=== PATIENT | female | born 1955 | race Caucasian/White ===

== ENCOUNTER 2018-02-05 13:15 | Emergency (ER) | payer MEDICARE, MEDICAID ==
[~2018-02-05] VITALS: Ht 162.6 cm; Wt 107.3 kg
[~2018-02-05 13:15] MED LIST: ANTIBIOTIC UNKNOWN; ATIVAN 0.50.5 MG/TAB PO; BENADRYL PO; BENADRYL50 MG PO; BENTYL 20MG20 MG/TAB PO; BLADDER PILL; CELEXA PO; CELEXA20 MG PO; CELEXA40 MG PO; COGENTIN PO; DESYREL 100MG100 MG PO; DITROPAN XL10 MG PO; HALDOL 5MG T5 MG/TAB PO; HALDOL 5MG/ML5 MG/ML INJ; LEVAQUIN 750MG750 M1 PO; MAGNESIUM200 MG PO; NEXIUM 20MG20 MG PO; NEXIUM10 MG/Pack PO; PRISTIQ 50 MG T50 MG PO; SINGULAIR 110 MG/TAB PO; TRAZADONE HYDR100 MG PO; VITAMIN D1000 IU PO; XARELTO STARTER20 MG PO; XARELTO15 MG PO; XARELTO20 MG PO
[2018-02-05 13:20] VITALS: BP 133/68; TEMP 97
[2018-02-05] MEDS ORDERED: ZYRTEC 10MG10 MG PO (13:42)
[2018-02-05] MEDS ORDERED: PRILOSEC 20MG20 MG PO (13:43)
[2018-02-05] MEDS ORDERED: ELIQUIS 5MG PO (13:43)
[2018-02-05] MEDS ORDERED: PROAIR HFA0.09 MG/AC IH ×2 (13:44→14:43)
[2018-02-05] MEDS ORDERED: LEVOXYL0.05 MG PO (13:44)
[2018-02-05] MEDS ORDERED: IPRATROPIUM BROM3 M1 IH (13:45)
[2018-02-05] MEDS ORDERED: COMBIRESP IH (14:43)
[2018-02-05 15:14] VITALS: PULSE 83
== END 2018-02-05 15:15 | disposition home or self-care (01) ==
LOC: COL.ER 13:15
DX: J45.909 Unspecified asthma, uncomplicated (principal); E03.9 Hypothyroidism, unspecified; Z86.711 Personal history of pulmonary embolism; Z86.718 Personal history of other venous thrombosis and embolism; Z79.01 Long term (current) use of anticoagulants
CPT/HCPCS: J1100

== ENCOUNTER → 2018-06-28 | Outpatient (CLI) | payer MEDICARE, MEDICAID ==
[~2018-06-28] MED LIST changes: +COMBIRESP IH; +ELIQUIS 5MG PO; +IPRATROPIUM BROM3 M1 IH; +LEVOXYL0.05 MG PO; +PRILOSEC 20MG20 MG PO; +PROAIR HFA0.09 MG/AC IH; +ZYRTEC 10MG10 MG PO
[2018-06-28 15:26] LABS: BASO # 0.1 (0.0-0.2); BASO % 1.1 % (0.0-2.0); EOS # 0.1 (0.0-0.7); EOS % 1.9 % (0-4.0); GRAN # 3.6 (1.4-6.5); GRAN % 58.7 % (42.2-75.2); HEMATOCRIT 43.6 % (37.0-47.0); HEMOGLOBIN 13.9 g/dl (12.5-16.0); LYMPH # 1.9 (1.2-3.4); LYMPH % 30.8 % (20.0-51.0); MEAN CELL VOLUME 82 fl (80.0-100.0); MEAN CORPUSCULAR HEMOGLOBIN 26 pg (27.0-31.0); MEAN CORPUSCULAR HGB CONC 32 g/dl (33.0-37.0); MEAN PLATELET VOLUME 12.3 fl (7.4-10.4); MONO # 0.5 (0.1-0.6); MONO % 7.3 % (1.7-9.3); PLATELET COUNT 175 K/mm3 (130-400); REDCELL DISTRIBUTION WIDTH-CV 18.1 % (11.5-14.5)
[2018-06-28 15:36] LABS: ALBUMIN 4.1 gm/dL (3.5-5.0); BILIRUBIN,TOTAL 0.5 mg/dL (0.0-1.0); CALCIUM 10.8 mg/dL (8.4-10.2); CREATININE, serum 0.81 mg/dL (0.52-1.25); MAGNESIUM 2.2 mg/dL (1.6-2.3); PHOSPHOROUS 2.8 mg/dL (2.5-4.5); POTASSIUM 3.9 mmol/L (3.4-5.0); TOTAL PROTEIN 7.5 gm/dL (6.4-8.2)
== END ==
LOC: COL.LAB 11:47
PROVIDERS: Family Medicine
DX: M79.606 Pain in leg, unspecified (principal); E21.5 Disorder of parathyroid gland, unspecified; G89.29 Other chronic pain

== ENCOUNTER → 2018-09-21 | Outpatient (CLI) | payer MEDICARE, OTHER | LOC: COL.RAD 07:57 | DX: M47.817 Spondylosis without myelopathy or radiculopathy, lumbosacral region (principal) ==

== ENCOUNTER → 2019-03-05 | Outpatient (CLI) | payer MEDICARE, OTHER | LOC: MC.RAD 07:12 | DX: Z12.31 Encounter for screening mammogram for malignant neoplasm of breast (principal); N64.89 Other specified disorders of breast ==

== ENCOUNTER → 2019-03-08 | Outpatient (CLI) | payer MEDICARE, OTHER | LOC: MC.RAD 13:26 | DX: N64.89 Other specified disorders of breast (principal) | CPT/HCPCS: G0279 ==

== ENCOUNTER → 2019-07-30 | Outpatient (CLI) | payer MEDICARE, OTHER | LOC: ZCOL.LAB 10:47 | DX: K52.9 Noninfective gastroenteritis and colitis, unspecified (principal) ==

== ENCOUNTER → 2019-09-20 | Outpatient (CLI) | payer MEDICARE, OTHER ==
[2019-09-20 11:32] LABS: BASO # 0.1 (0.0-0.2); EOS # 0.3 (0.0-0.7); EOS % 3.8 % (0-4.0); GRAN # 4.2 (1.4-6.5); GRAN % 62.6 % (42.2-75.2); HEMOGLOBIN 14.4 g/dl (12.5-16.0); LYMPH # 1.7 (1.2-3.4); LYMPH % 24.7 % (20.0-51.0); MEAN CELL VOLUME 92 fl (80.0-100.0); MEAN CORPUSCULAR HEMOGLOBIN 30 pg (27.0-31.0); MEAN CORPUSCULAR HGB CONC 33 g/dl (33.0-37.0); MEAN PLATELET VOLUME 11.1 fl (7.4-10.4); MONO # 0.5 (0.1-0.6); MONO % 7.8 % (1.7-9.3); PLATELET COUNT 192 K/mm3 (130-400); RED BLOOD COUNT 4.76 M/mm3 (4.10-5.30); REDCELL DISTRIBUTION WIDTH-CV 13.3 % (11.5-14.5)
[2019-09-20 11:44] LABS: ALBUMIN 4.1 gm/dL (3.5-5.0); BILIRUBIN,TOTAL 0.5 mg/dL (0.0-1.0); CALCIUM 11.2 mg/dL (8.4-10.2); CREATININE, serum 0.99 (0.52-1.25); POTASSIUM 3.8 mmol/L (3.4-5.0); TOTAL PROTEIN 7.3 gm/dL (6.4-8.2)
[2019-09-20 12:14] LABS: THYROID STIMULATING HORMONE 3.12 uIU/mL (0.465-4.680)
[2019-09-20 22:59] LABS: PTH,INTACT 197.3 pg/mL (6.6-88.9)
== END ==
LOC: COL.LAB 10:50
PROVIDERS: Family Medicine
DX: R53.83 Other fatigue (principal); E03.9 Hypothyroidism, unspecified; E21.5 Disorder of parathyroid gland, unspecified

== ENCOUNTER → 2019-09-20 | Outpatient (CLI) | payer MEDICARE, OTHER | LOC: ZCOL.LAB 16:28 | DX: N39.0 Urinary tract infection, site not specified (principal) ==

== ENCOUNTER 2019-11-25 15:23 | Emergency (ER) | payer MEDICARE, OTHER ==
[~2019-11-25] VITALS: Ht 162.6 cm; Wt 104.5 kg
[2019-11-25 15:28] VITALS: BP 140/85; TEMP 97.7
[2019-11-25] MEDS ORDERED: NORCO 325 MG-51 TAB PO (17:03)
[2019-11-25 18:06] VITALS: PULSE 80
== END 2019-11-25 18:06 | disposition home or self-care (01) ==
LOC: COL.ER 15:23
DX: S52.501A Unspecified fracture of the lower end of right radius, initial encounter for closed fracture (principal); R40.2412 Glasgow coma scale score 13-15, at arrival to emergency department; Z86.718 Personal history of other venous thrombosis and embolism; Z79.01 Long term (current) use of anticoagulants; W00.0XXA Fall on same level due to ice and snow, initial encounter; Y92.410 Unspecified street and highway as the place of occurrence of the external cause
CPT/HCPCS: Q4050

== ENCOUNTER → 2020-06-06 | Outpatient (CLI) | payer MEDICARE, OTHER ==
[~2020-06-06] MED LIST changes: +NORCO 325 MG-51 TAB PO
== END ==
LOC: COL.RAD 10:20
DX: E21.3 Hyperparathyroidism, unspecified (principal); E55.9 Vitamin D deficiency, unspecified
CPT/HCPCS: A9500

== ENCOUNTER 2020-12-04 11:10 | Outpatient (CLI) | payer MEDICARE, OTHER ==
[~2020-12-04] VITALS: Ht 162.6 cm; Wt 111.4 kg
[2020-12-04] VITALS (9 sets, daily range): BP systolic 108–132; BP diastolic 54–103; PULSE 73–93; TEMP 98.4
[2020-12-04] MEDS ORDERED: BREO IH (11:15)
[2020-12-04] MEDS ORDERED: ZESTRIL 20MG TA20 MG PO (11:15)
[2020-12-04] MEDS ORDERED: PRILOSEC 20MG20 MG PO (11:16)
[2020-12-04] MEDS ORDERED: VENTOLIN0.09 MG IH (11:17)
[2020-12-04] MEDS ORDERED: QUESTRAN LI4 GM/5 GM PO (11:17)
== END 2020-12-04 13:30 | disposition home or self-care (01) ==
LOC: EUO 11:10
DX: U07.1 COVID-19 (principal)
CPT/HCPCS: J7050

== ENCOUNTER 2020-12-09 12:23 | Observation (INO) | payer MEDICARE, OTHER ==
[~2020-12-09] VITALS: Ht 162.6 cm; Wt 111.6 kg
[~2020-12-09 12:23] MED LIST changes: +BREO IH; +QUESTRAN LI4 GM/5 GM PO; +VENTOLIN0.09 MG IH; +ZESTRIL 20MG TA20 MG PO
[2020-12-09 13:09] LABS: BASO % 0.5 % (0.0-2.0); EOS # 0.1 (0.0-0.7); EOS % 0.6 % (0-4.0); GRAN # 6.1 (1.4-6.5); GRAN % 76.2 % (42.2-75.2); HEMATOCRIT 46.9 % (37.0-47.0); HEMOGLOBIN 15.4 g/dl (12.5-16.0); LYMPH # 1.1 (1.2-3.4); LYMPH % 13.5 % (20.0-51.0); MEAN CELL VOLUME 91 fl (80.0-100.0); MEAN CORPUSCULAR HEMOGLOBIN 30 pg (27.0-31.0); MEAN CORPUSCULAR HGB CONC 33 g/dl (33.0-37.0); MEAN PLATELET VOLUME 11.1 fl (7.4-10.4); MONO # 0.7 (0.1-0.6); MONO % 8.6 % (1.7-9.3); PLATELET COUNT 223 K/mm3 (130-400); RED BLOOD COUNT 5.17 M/mm3 (4.10-5.30); REDCELL DISTRIBUTION WIDTH-CV 13.1 % (11.5-14.5)
[2020-12-09 13:26] LABS: ALBUMIN 4.2 gm/dL (3.5-5.0); BILIRUBIN,TOTAL 0.7 mg/dL (0.0-1.0); CALCIUM 11.4 mg/dL (8.4-10.2); CREATININE, serum 1.14 (0.52-1.25); POTASSIUM 4.5 mmol/L (3.4-5.0)
[2020-12-09 21:42] VITALS: BP 125/55; PULSE 83; TEMP 98.8
[2020-12-09 23:50] VITALS: BP 122/56; PULSE 84; TEMP 98.6
--- NOTE | 2020-12-10 00:45 | NUR ---
Patient admitted to medical floor room 305 from ER at 1900. Patient finished dinner in bed upon enter the room. Patient alert and oriented. Denies any pain or discomfort. Denies SOB or dyspnea while resting in bed. Patient reports she gets SOB when she gets up or with any movement. Currently on room air. SPO2 90% on RA at this time. Moist cough noted. HOB elevated. NS running at 100ml/hr via left AC. Assessment completed and charted. All scheduled meds given per JAN. Ice-water offered per request. Call light within reach. Encouraged patient to call the nurse if she needs anything. Patient verbalized understanding. Will continue to monitor.
[2020-12-10 01:30] VITALS: BP 122/56; PULSE 84; TEMP 98.6
[2020-12-10 03:05] VITALS: BP 118/58; PULSE 84; TEMP 98.7
[2020-12-10 04:29] VITALS: BP 120/61; PULSE 85; TEMP 98.7
--- NOTE | 2020-12-10 06:05 | NUR ---
Patient is having more productive cough this morning. PRN Robitussin given this morning. VS stable. SPO2 93% on RA. Patient sitting up in bed. Call light within reach. Patient denies further needs at this time.
[2020-12-10 07:32] LABS: BASO % 0.2 % (0.0-2.0); GRAN # 4.8 (1.4-6.5); GRAN % 85.8 % (42.2-75.2); HEMATOCRIT 41.6 % (37.0-47.0); HEMOGLOBIN 13.8 g/dl (12.5-16.0); LYMPH # 0.6 (1.2-3.4); LYMPH % 11.3 % (20.0-51.0); MEAN CELL VOLUME 91 fl (80.0-100.0); MEAN CORPUSCULAR HEMOGLOBIN 30 pg (27.0-31.0); MEAN CORPUSCULAR HGB CONC 33 g/dl (33.0-37.0); MEAN PLATELET VOLUME 11.5 fl (7.4-10.4); MONO # 0.1 (0.1-0.6); PLATELET COUNT 207 K/mm3 (130-400); RED BLOOD COUNT 4.57 M/mm3 (4.10-5.30); REDCELL DISTRIBUTION WIDTH-CV 12.9 % (11.5-14.5)
[2020-12-10 07:42] LABS: CALCIUM 10.7 mg/dL (8.4-10.2); CREATININE, serum 0.83 (0.52-1.25); POTASSIUM 4.3 mmol/L (3.4-5.0)
--- NOTE | 2020-12-10 08:30 | NUR ---
Shift assessment complete. Pt sitting up in bed. Reports SOA with coughing. Frequent dry cough noted. Lung sounds coarse to auscultation. Heart RRR. A&Ox4. Remains on RA with sats stable. Denies pain or other concerns. Continuing to monitor.
--- NOTE | 2020-12-10 09:55 | NUR ---
The patient is positive for COVID-19. SW contacted the patient's room phone to discuss discharge plan. The patient lives alone in [place]. She states that one of her daughter's, Stephanie Finley (ph#[phone]), lives in [place]. She reports independence with ADLs and does not have any DME. The patient's primary care provider is DYLAN Carson and she receives her medications from [facility]. She reports some difficulties affording her meds right now. SW informed her of [employer] assistance and [employer]. The patient does not have a DPOA-HC. She states that she is not and that she has two children: Stephanie and Lashawn (ph#[phone]). Lashawn lives in [place]. The patient plans to return home upon discharge. SW to continue to follow as needed.
[2020-12-10] MEDS ORDERED: DOXYCYCLINE 10100 MG PO (11:49)
[2020-12-10] MEDS ORDERED: DECADRON6 MG PO (11:50)
[2020-12-10 12:50] VITALS: BP 118/68; PULSE 79; TEMP 97.2
[2020-12-10] MEDS ORDERED: ROBITUSSIN DM 105 ML PO (12:54)
--- NOTE | 2020-12-10 14:51 | NUR ---
Discharge instructions discussed with pt and all questions answered. IV to left AC removed, tip intact. Pt dressed independently. Pt's daughter on the way to peanut picker. Continuing to monitor.
--- NOTE | 2020-12-10 16:00 | NUR ---
Pt ambulated down to ED entrance, wheelchair offered and refused. Accompanied by this RN. Got into family car independently. All belongings in possession.
== END 2020-12-10 16:00 | disposition home or self-care (01) ==
LOC: COL.ER 12:23 → MEDICAL 13:51
PROVIDERS: Family Medicine; ADMIT Hospitalist
DX: U07.1 COVID-19 (principal); I10 Essential (primary) hypertension; Z86.718 Personal history of other venous thrombosis and embolism; Z86.711 Personal history of pulmonary embolism; E03.9 Hypothyroidism, unspecified; K21.9 Gastro-esophageal reflux disease without esophagitis; R19.7 Diarrhea, unspecified; J45.909 Unspecified asthma, uncomplicated; Z88.5 Allergy status to narcotic agent; Z88.1 Allergy status to other antibiotic agents; Z88.8 Allergy status to other drugs, medicaments and biological substances; Z79.01 Long term (current) use of anticoagulants; Z79.51 Long term (current) use of inhaled steroids
CPT/HCPCS: J0696; J7030; J7120; J8540

== ENCOUNTER 2021-02-24 09:46 | Emergency (ER) | payer MEDICARE, OTHER, MEDICAID ==
[~2021-02-24] VITALS: Ht 162.6 cm; Wt 113.6 kg
[~2021-02-24 09:46] MED LIST changes: +DECADRON6 MG PO; +DOXYCYCLINE 10100 MG PO; +ROBITUSSIN DM 105 ML PO
[2021-02-24 11:44] LABS: COLLECTION METHOD CLEAN CATCH
[2021-02-24 11:53] LABS: MUCOUS Present /lpf; PH 6 (5-8); URINE APPEARANCE Hazy; URINE BACTERIA None Seen /hpf; URINE BILIRUBIN Negative (NEGATIVE); URINE BLOOD Negative (NEGATIVE); URINE COLOR Yellow; URINE GLUCOSE Negative (NEGATIVE); URINE KETONE Negative (NEGATIVE); URINE LEUKOCYTE ESTERASE 1+ (NEGATIVE); URINE NITRATE Negative (NEGATIVE); URINE PROTEIN(semi-quant) Negative (NEGATIVE); URINE RBC 0-2 /hpf; URINE UROBILINOGEN Negative (NEGATIVE)
[2021-02-24 12:03] LABS: ALANINE AMINOTRANSFERASE 20 U/L (4-34); ALKALINE PHOSPHATASE 94 U/L (50-136); ANION GAP 9 mmol/L (7-16); AST,SGOT 24 U/L (15-37); BILIRUBIN,TOTAL 0.4 mg/dL (0.0-1.0); BLOOD UREA NITROGEN 13 mg/dL (7-17); C-REACTIVE PROTEIN 0.8 mg/dL (0.0-0.9); CALCIUM 11.2 mg/dL (8.4-10.2); CARBON DIOXIDE 22 mmol/L (22-30); CHLORIDE 106 mmol/L (98-107); CREATININE, serum 0.87 (0.52-1.25); GLUCOSE 119 mg/dL (74-106); POTASSIUM 4.4 mmol/L (3.4-5.0); SODIUM 137 mmol/L (137-145); TOTAL PROTEIN 7.4 gm/dL (6.4-8.2)
[2021-02-24 12:13] LABS: TROPONIN-I < 0.012 ng/mL (0.000-0.035)
[2021-02-24 12:18] LABS: BASO # 0.1 (0.0-0.2); BASO % 1.2 % (0.0-2.0); EOS # 0.2 (0.0-0.7); EOS % 2.5 % (0-4.0); GRAN # 4.8 (1.4-6.5); GRAN % 69.6 % (42.2-75.2); HEMATOCRIT 44.9 % (37.0-47.0); HEMOGLOBIN 14.6 g/dl (12.5-16.0); LYMPH # 1.2 (1.2-3.4); MEAN CELL VOLUME 94 fl (80.0-100.0); MEAN CORPUSCULAR HEMOGLOBIN 30 pg (27.0-31.0); MEAN CORPUSCULAR HGB CONC 33 g/dl (33.0-37.0); MEAN PLATELET VOLUME 12.3 fl (7.4-10.4); MONO # 0.6 (0.1-0.6); MONO % 8.4 % (1.7-9.3); PLATELET COUNT 226 K/mm3 (130-400); REDCELL DISTRIBUTION WIDTH-CV 14.3 % (11.5-14.5)
[2021-02-24] MEDS ORDERED: PREDNISONE20 MG PO (14:16)
[2021-02-24] MEDS ORDERED: IPRATROPIUM BROM3 M1 IH (14:23)
[2021-02-24 14:34] VITALS: BP 133/74; PULSE 77; TEMP 97.9
== END 2021-02-24 14:34 | disposition home or self-care (01) ==
LOC: COL.ER 09:46
PROVIDERS: Nurse Practitioner Primary Care
DX: J45.901 Unspecified asthma with (acute) exacerbation (principal); E03.9 Hypothyroidism, unspecified; K21.9 Gastro-esophageal reflux disease without esophagitis; Z88.8 Allergy status to other drugs, medicaments and biological substances; Z88.6 Allergy status to analgesic agent; Z88.1 Allergy status to other antibiotic agents; Z87.891 Personal history of nicotine dependence; Z79.01 Long term (current) use of anticoagulants; Z79.890 Hormone replacement therapy
CPT/HCPCS: J7030

== ENCOUNTER 2021-03-10 16:27 | Emergency (ER) | payer MEDICARE, OTHER, MEDICAID ==
[~2021-03-10] VITALS: Ht 162.6 cm; Wt 113.6 kg
[~2021-03-10 16:27] MED LIST changes: +PREDNISONE20 MG PO
[2021-03-10 16:31] VITALS: TEMP 97.4
[2021-03-10 17:30] LABS: INR 1.3 (0.8-3.0); PROTHROMBIN TIME 14.9 SECONDS (9.7-12.8)
[2021-03-10 17:42] LABS: D-DIMER < 200.00 ng/mLDDu (200-230)
[2021-03-10 18:08] VITALS: BP 147/78; PULSE 79
== END 2021-03-10 18:05 | disposition home or self-care (01) ==
LOC: COL.ER 16:27
PROVIDERS: Emergency Medicine
DX: M79.605 Pain in left leg (principal); J45.909 Unspecified asthma, uncomplicated; I10 Essential (primary) hypertension; E89.0 Postprocedural hypothyroidism; Z86.718 Personal history of other venous thrombosis and embolism; Z79.01 Long term (current) use of anticoagulants; Z86.711 Personal history of pulmonary embolism; Z86.16 Personal history of COVID-19; Z88.1 Allergy status to other antibiotic agents; Z88.6 Allergy status to analgesic agent; Z88.5 Allergy status to narcotic agent; Z87.891 Personal history of nicotine dependence; Z79.890 Hormone replacement therapy; Z79.51 Long term (current) use of inhaled steroids; Z79.899 Other long term (current) drug therapy

== ENCOUNTER → 2021-04-03 | Outpatient (CLI) | payer MEDICARE, OTHER ==
[~2021-04-03] MED LIST changes: +RT SPIRIVA18 MCG IH
--- NOTE | 2021-04-03 13:24 | NUR ---
PATIENT AGREED TO TAKE ALBUTEROL MEDICATION, AND SAYS SHE TAKES THIS AT HOME WELL WHEN ASKED.
== END ==
LOC: COL.PUL 12:42
DX: J45.40 Moderate persistent asthma, uncomplicated (principal); Z87.891 Personal history of nicotine dependence
CPT/HCPCS: J7674

== ENCOUNTER → 2021-06-22 | Outpatient (CLI) | payer MEDICARE, OTHER | LOC: MC.RAD 08:43 | DX: Z12.31 Encounter for screening mammogram for malignant neoplasm of breast (principal) ==

== ENCOUNTER 2021-07-14 11:18 | Observation (INO) | payer MEDICARE, OTHER, MEDICAID ==
[~2021-07-14] VITALS: Ht 170.2 cm; Wt 113.6 kg
[~2021-07-14 11:18] MED LIST changes: -RT SPIRIVA18 MCG IH
[2021-07-14 11:54] LABS: BASO # 0.1 (0.0-0.2); BASO % 1.1 % (0.0-2.0); EOS # 0.5 (0.0-0.7); EOS % 6.1 % (0-4.0); GRAN # 5.1 (1.4-6.5); HEMATOCRIT 43.8 % (37.0-47.0); HEMOGLOBIN 14.3 g/dl (12.5-16.0); LYMPH # 1.7 (1.2-3.4); MEAN CELL VOLUME 91 fl (80.0-100.0); MEAN CORPUSCULAR HEMOGLOBIN 30 pg (27.0-31.0); MEAN CORPUSCULAR HGB CONC 33 g/dl (33.0-37.0); MEAN PLATELET VOLUME 11.8 fl (7.4-10.4); MONO # 0.6 (0.1-0.6); MONO % 7.5 % (1.7-9.3); PLATELET COUNT 184 K/mm3 (130-400); RED BLOOD COUNT 4.82 M/mm3 (4.10-5.30); REDCELL DISTRIBUTION WIDTH-CV 14.2 % (11.5-14.5)
[2021-07-14 12:06] LABS: BILIRUBIN,TOTAL 0.3 mg/dL (0.0-1.0); CALCIUM 11.2 mg/dL (8.4-10.2); CREATININE, serum 0.97 (0.52-1.25); TOTAL PROTEIN 6.9 gm/dL (6.4-8.2)
[2021-07-14 12:18] LABS: TROPONIN-I 0.016 ng/mL (0.000-0.035)
[2021-07-14 16:31] VITALS: BP 136/84; PULSE 96; TEMP 97.5
--- NOTE | 2021-07-14 16:46 | NUR ---
PT CAME TO FLOOR FROM ED. RECEIVED REPORT FROM PEDRO MARY. PT AWAKE, ALERT/ORIENTED X4. RESTING IN BED. DENIES REPORTS OF PAIN. CALL OTERO IN REACH. NOTHING FURTHER NEEDED AT THIS TIME.
--- NOTE | 2021-07-14 18:09 | NUR ---
pt breathing 56 rr a minute, pulse ox 98% on 3l nc, rt called for breathing treatment, kajal caldwell called and ativan ordered.
--- NOTE | 2021-07-14 18:36 | NUR ---
PT REPORTS much easier breathing, pt breathing less labored per assessment, called rt for breathing treatment as she still has not had it yet. no other needs
--- NOTE | 2021-07-14 18:46 | NUR ---
PT WAS ADMITTED FROM ED WITH ASTHMA EXACERBATION. PT HAD RESPIRATORY DISTRESS EPISODE WITH RESPIRATIONS IN THE 30s. PT IS BREATHING NORMALLY NOW. PT SITTING IN BED EATING. DENIES ANY PAIN AND HAS NO NEEDS AT THIS TIME. CALL OTERO IN REACH.
--- NOTE | 2021-07-14 20:30 | NUR ---
Initial shift assessment done- denies pain, SOB with exertion, o2 3L/nc, calm, has been resting, no requests, will wear her CPAP for the night
[2021-07-14 20:42] VITALS: BP 135/67; PULSE 95; TEMP 97.5
[2021-07-15] VITALS (8 sets, daily range): BP systolic 97–121; BP diastolic 51–70; PULSE 68–107; TEMP 97.5–98.7
--- NOTE | 2021-07-15 04:49 | NUR ---
Quiet night- sleeping well tonight, VSS, has been on her CPAP all night.
--- NOTE | 2021-07-15 08:20 | NUR ---
PT PLEASANT, AOX4, PT HAS TACHYPNIC BREATHING, RT CALLED FOR BREATHING TREATMENT. VITALS TAKEN, MEDICATIONS GIVEN, ASSESSMENT PERFORMED, DESPITE LABORED BREATHING PT REPORTS "FEELING MUCH BETTER".
--- NOTE | 2021-07-15 10:08 | NUR ---
WENT TO REASSESS PT, PT STILL BREATHING 34 A MINUTE DESPITE HAVING BREATHING TREATMENT EARLIER IN AM. DONIS RICHARDSON NOTIFIED.
[2021-07-15 10:25] LABS: BASO % 0.1 % (0.0-2.0); GRAN # 14.5 (1.4-6.5); GRAN % 91.7 % (42.2-75.2); HEMATOCRIT 41.2 % (37.0-47.0); HEMOGLOBIN 13.5 g/dl (12.5-16.0); LYMPH # 0.8 (1.2-3.4); LYMPH % 4.9 % (20.0-51.0); MEAN CELL VOLUME 92 fl (80.0-100.0); MEAN CORPUSCULAR HEMOGLOBIN 30 pg (27.0-31.0); MEAN CORPUSCULAR HGB CONC 33 g/dl (33.0-37.0); MONO # 0.4 (0.1-0.6); MONO % 2.7 % (1.7-9.3); PLATELET COUNT 177 K/mm3 (130-400); REDCELL DISTRIBUTION WIDTH-CV 14.4 % (11.5-14.5)
[2021-07-15 10:32] LABS: CALCIUM 11.5 mg/dL (8.4-10.2); CREATININE, serum 0.81 (0.52-1.25); POTASSIUM 4.2 mmol/L (3.4-5.0)
--- NOTE | 2021-07-15 12:03 | NUR ---
RESP RATE REASSESSED AFTER ATIVAN ADMINISTRATION, PT STILL TACHYPNIC, DONIS RICHARDSON NOTIFIED AND RT CALLED FOR A BREATHING TREATMENT
--- NOTE | 2021-07-15 13:53 | NUR ---
First visit from the box repairer. No needs right now.
--- NOTE | 2021-07-15 16:23 | NUR ---
Met with patient to discuss discharge planning. Patient noticably short of breath but willing and able to converse. Patient lives alone here in [place]. She states their are some stairs into the front of the property but she is able to manage them if needed. Patient lists her daughter, Stephanie Ny #[phone] as her emergency contact and DPOA-HC. Form filled out with ABEL Mendez and copy placed on patient chart. Alternate is patient's other daughter, Lashawn Cline who lived in [place]. Patient does not use and assistive devices, home medical equipment, or home health services. She stated she has Medicare, supplemental insurance, and [email or web address]. PCP is Sonu RICHARDSON with [facility] and preferred pharmacy is [facility]. Patient thinks her daughter may be able to help her out at home a little but doesn't expect to need any home health services. Outpatient physical therapy, patient thinks [place]. Discharge plan: home with family, OUTPT PT
--- NOTE | 2021-07-15 18:33 | NUR ---
PT TACHYPNIC ALL DAY, BREATHING TREATMENTS SCHEDULED, DENIES PAIN, NO OHTER NEEDS
--- NOTE | 2021-07-15 19:12 | NUR ---
PT HAD COUGHING FIT, BREATHING 56 PER MINUTE. JOSE DAVID PAYNE CALLED AND ATIVAN ONE TIME ORDERED. RT CALLED FOR BREATHING TREATMENT. RT IN ROOM GIVING BREATHING TREATMENT WHEN ATIVAN GIVEN.
--- NOTE | 2021-07-15 19:15 | NUR ---
PT REPORTING ACHING IN CHEST THAT DOES NOT RADIATE ANYWHERE. VITALS OBTAINED
--- NOTE | 2021-07-15 19:24 | NUR ---
JOSE DAVID CALLED AND NOTIFIED OF CHEST ACHE WITH BREATHING TREATMENT. EKG ORDERED ALONG WITH TROPONIN'S INITIAL AND 3HR. ORDERS PLACED.
[2021-07-16] VITALS (7 sets, daily range): BP systolic 103–157; BP diastolic 43–91; PULSE 59–86; TEMP 97.1–98
--- NOTE | 2021-07-16 00:24 | NUR ---
PT CURRENTLY ON HOME CPAP MACHINE. SATURATIONS 94% FOR 0000 VS.
--- NOTE | 2021-07-16 00:42 | NUR ---
THIS RN NOTICED THAT ASSESSMENT NOTE IS NOT AVAILABLE AT THIS TIME. RECONSTRUCTION OF ASSESSMENT NOTE ATTEMPT. PT ALERT AND ORIENTED. PT HAD TACHYPNIC EPISODE AT SHIFT CHANGE WHICH SHE STATED WAS RESULT OF DRINKING COFFEE. PT EDUCATED ON EFFECTS OF CAFFEINE. PT CONTINUES TO BE TACHYPNIC BUT HAS SLOWED SINCE BREATHING TREATMENT. PT HAS RIGHT LOWER LOBE CRACKLES NOTED. PT LEGS NEAR CALF AND CONNOR HAS SHINY, SCALING SKIN. PT HAS 1+ BILATERAL EDEMA IN LOWER EXTREMITIES. PT ABLE TO CONVERSE FREELY, DENIES FEELING SHORT OF AIR AT THIS TIME. PT GIVEN PRN COUGH MEDICATION PER ORDERS. NO FURTHER NEEDS AT THIS TIME. PT CALL LIGHT WITHIN REACH.
--- NOTE | 2021-07-16 05:18 | NUR ---
PT CONTINUING ON PLAN OF CARE. PT DENIED PAIN THIS SHIFT. TACHYPNEA CONTINUES THROUGH NIGHT. PT DENIES SOA DURING RN ROUNDS. PT ON HOME CPAP WHILE SLEEPING. PT VS REMAINED STABLE. PT FREE FROM INJURY THIS SHIFT.
[2021-07-16 06:19] LABS: BASO % 0.1 % (0.0-2.0); GRAN # 13.6 (1.4-6.5); GRAN % 89.3 % (42.2-75.2); HEMATOCRIT 41.2 % (37.0-47.0); HEMOGLOBIN 13.1 g/dl (12.5-16.0); LYMPH # 0.8 (1.2-3.4); LYMPH % 5.4 % (20.0-51.0); MEAN CELL VOLUME 92 fl (80.0-100.0); MEAN CORPUSCULAR HEMOGLOBIN 29 pg (27.0-31.0); MEAN CORPUSCULAR HGB CONC 32 g/dl (33.0-37.0); MEAN PLATELET VOLUME 12.3 fl (7.4-10.4); MONO # 0.7 (0.1-0.6); MONO % 4.5 % (1.7-9.3); PLATELET COUNT 175 K/mm3 (130-400); RED BLOOD COUNT 4.49 M/mm3 (4.10-5.30); REDCELL DISTRIBUTION WIDTH-CV 14.6 % (11.5-14.5)
[2021-07-16 06:36] LABS: CALCIUM 11.2 mg/dL (8.4-10.2); CREATININE, serum 0.9 (0.52-1.25); POTASSIUM 4.4 mmol/L (3.4-5.0)
--- NOTE | 2021-07-16 09:00 | NUR ---
PT PLEASANT, AOX4, LABORED BREATHING THAT WORSENS WITH COUGH, COUGH MEDICATION GIVEN WITH PT MORNING MEDS. VITALS TAKEN, PT AOX4, ASSESSMENT PERFOMRED, PT DENIES PAIN, NO OTHER NEEDS
--- NOTE | 2021-07-16 14:36 | NUR ---
Patient completed a living will and worker placed a copy on the medical chart.
--- NOTE | 2021-07-16 14:40 | NUR ---
WENT OVER LABS EXTENSIVELY WITH PT.
--- NOTE | 2021-07-16 17:29 | NUR ---
PT AOX4, SOB AFTER COUGHING, COUGH MEDICINE GIVEN, DENIES PAIN, VITALS STABLE, UNEVENTFUL SHIFT
--- NOTE | 2021-07-16 23:37 | NUR ---
PT ALERT AND ORIENTED. PT COMPLAINED OF NAUSEA, PRN ZOFRAN ORDERED. PT COMPLAINED OF HEADACHE 8/10, PRN TYLENOL ORDERED AND ADMINISTERED. PT HAD COARSE LUNG SOUNDS IN RIGHT LOWER LOBE. PT ABLE TO AMBULATE INDEPENDENT IN ROOM. PT DENIES OTHER NEEDS AT THIS TIME. PT CALL LIGHT WITHIN REACH.
[2021-07-17] VITALS: BP 105/56; PULSE 69; TEMP 98.4
--- NOTE | 2021-07-17 00:35 | NUR ---
THIS RN NOTED SPO2 AT 90% WITH 0000 VS. RECHECKED AT THIS TIME. SPO2 92% ON HOME CPAP.
[2021-07-17 03:21] VITALS: BP 113/58; PULSE 86; TEMP 97.8
--- NOTE | 2021-07-17 05:23 | NUR ---
PT CONTINUING ON PLAN OF CARE. PT COMPLAINED OF HEADACHE AT BEGINNING OF SHIFT, MANAGED WITH PRN PAIN MEDICATION PER ORDERS. PT STATED ADEQUATE PAIN RELIEF. PT COMPLAINED OF NAUSEA, PRN ZOFRAN ADMINISTERED PER ORDERS. NO EMESIS THIS SHIFT. PT VS REMAINED STABLE THIS SHIFT. PT ABLE TO AMBULATE INDEPENDENTLY IN ROOM. PT FREE FROM INJURY THIS SHIFT.
--- NOTE | 2021-07-17 05:25 | NUR ---
BACKCHARTING. PT PLACED ON 1.5L AT 0321 TO MAINTAIN SPO2 ABOVE 92%.
--- NOTE | 2021-07-17 07:00 | NUR ---
Report with PEDRO Garcia. Pt resting in bed, drowsy but awake and reports slight nausea still but improved. No further needs reported. Call light in reach.
[2021-07-17 07:53] LABS: ALANINE AMINOTRANSFERASE 19 U/L (4-34); ALBUMIN 3.3 gm/dL (3.5-5.0); ALKALINE PHOSPHATASE 82 U/L (50-136); ANION GAP 4 mmol/L (7-16); AST,SGOT 19 U/L (15-37); BILIRUBIN,TOTAL < 0.1 mg/dL (0.0-1.0); BLOOD UREA NITROGEN 24 mg/dL (7-17); CARBON DIOXIDE 24 mmol/L (22-30); CHLORIDE 108 mmol/L (98-107); CREATININE, serum 1.01 (0.52-1.25); GLUCOSE 118 mg/dL (74-106); POTASSIUM 4.7 mmol/L (3.4-5.0); SODIUM 136 mmol/L (137-145); TOTAL PROTEIN 5.9 gm/dL (6.4-8.2)
[2021-07-17 07:58] LABS: GRAN # 7.7 (1.4-6.5); GRAN % 84.5 % (42.2-75.2); HEMATOCRIT 40.1 % (37.0-47.0); HEMOGLOBIN 12.7 g/dl (12.5-16.0); LYMPH # 0.9 (1.2-3.4); LYMPH % 9.9 % (20.0-51.0); MEAN CELL VOLUME 92 fl (80.0-100.0); MEAN CORPUSCULAR HEMOGLOBIN 29 pg (27.0-31.0); MEAN CORPUSCULAR HGB CONC 32 g/dl (33.0-37.0); MEAN PLATELET VOLUME 12.6 fl (7.4-10.4); MONO # 0.5 (0.1-0.6); PLATELET COUNT 146 K/mm3 (130-400); RED BLOOD COUNT 4.35 M/mm3 (4.10-5.30); REDCELL DISTRIBUTION WIDTH-CV 14.6 % (11.5-14.5)
[2021-07-17 08:05] VITALS: BP 117/82; PULSE 52; TEMP 97.8
[2021-07-17] MEDS ORDERED: DOXYCYCLINE 10100 MG PO (11:39)
[2021-07-17] MEDS ORDERED: DECADRON6 MG PO (11:40)
[2021-07-17] MEDS ORDERED: RT SPIRIVA18 MCG IH (11:52)
[2021-07-17 12:48] VITALS: BP 118/66; PULSE 70; TEMP 97.6
--- NOTE | 2021-07-17 14:06 | NUR ---
Primary nurse was assisted with [id number] patient care by [employer] [facility] [facility] [employer] student Zaina Oakley and [employer] [facility] instructor Ashleigh Montoya MSN, RN
--- NOTE | 2021-07-17 14:30 | NUR ---
Discharge instructions reviewed with pt regarding new medications and follow-up appointments. Pt reports insurance not able to cover Spiriva. Provider notified. Pt is to discuss with linux network administrator at follow-up appointment. Pt verbalizes understanding.
== END 2021-07-17 15:00 | disposition home or self-care (01) ==
LOC: COL.ER 11:18 → MEDICAL 14:42
PROVIDERS: Personal Emergency Response Attendant; Physician Assistant; ADMIT Internal Medicine
DX: J45.41 Moderate persistent asthma with (acute) exacerbation (principal); J96.01 Acute respiratory failure with hypoxia; R73.9 Hyperglycemia, unspecified; D72.829 Elevated white blood cell count, unspecified; I10 Essential (primary) hypertension; E03.9 Hypothyroidism, unspecified; G47.33 Obstructive sleep apnea (adult) (pediatric); E21.3 Hyperparathyroidism, unspecified; N32.81 Overactive bladder; Z90.710 Acquired absence of both cervix and uterus; Z99.89 Dependence on other enabling machines and devices; Z20.822 Contact with and (suspected) exposure to COVID-19; Z86.718 Personal history of other venous thrombosis and embolism; Z79.890 Hormone replacement therapy; Z79.899 Other long term (current) drug therapy; Z87.891 Personal history of nicotine dependence; Z83.3 Family history of diabetes mellitus; Z80.1 Family history of malignant neoplasm of trachea, bronchus and lung
CPT/HCPCS: 99232-AI; G0378; J1100; J1815; J2060; J2405

== ENCOUNTER → 2022-09-16 | Outpatient (CLI) | payer MEDICARE, MEDICAID ==
[~2022-09-16] MED LIST changes: +RT SPIRIVA18 MCG IH
== END ==
LOC: MC.RAD 08:52
DX: Z12.31 Encounter for screening mammogram for malignant neoplasm of breast (principal)